=== PATIENT | female | born 1970 | race Two or more races ===

== ENCOUNTER 2024-05-09 16:42 | Emergency (ER) | payer OTHER ==
[~2024-05-09] VITALS: Ht 144.8 cm; Wt 52.3 kg
[2024-05-09 16:51] VITALS: TEMP 98.4
[2024-05-09 17:14] LABS: BASOPHILS % (AUTO) 0.7 % (0.0-2.0); EOSINOPHILS % (AUTO) 1.1 % (1.0-6.0); LYMPHOCYTES # (AUTO) 1.3 K/uL (1.0-4.8); LYMPHOCYTES % (AUTO) 28.4 % (22.0-44.0); MEAN CORPUSCULAR HEMOGLOBIN 31.3 pg (26.0-34.0); MEAN CORPUSCULAR HGB CONC 33.5 G/dL (31.0-37.0); MEAN CORPUSCULAR VOLUME 94 fL (80-100); MONOCYTES # (AUTO) 0.3 K/uL (0.1-1.0); MONOCYTES % (AUTO) 7.7 % (2.0-9.0); NEUTROPHILS # (AUTO) 2.8 K/uL (1.8-7.7); NEUTROPHILS % (AUTO) 62.1 % (40.0-70.0); PLATELET COUNT (AUTO) 271 K/uL (150-450); RED BLOOD CELL COUNT(AUTO) 4.16 MIL/uL (4.00-5.20); RED CELL DISTRIBUTION WIDTH 13.2 % (11.5-14.5); WHITE BLOOD COUNT (AUTO) 4.5 K/uL (4.5-11.0)
[2024-05-09 17:29] LABS: TROPONIN I-HIGH SENSITIVITY Less Than 4 ng/L (<51)
[2024-05-09 17:38] LABS: B-TYPE NATRIURETIC PEPTIDE 12 pg/mL (0-100)
[2024-05-09 17:43] LABS: ALANINE AMINOTRANSFERASE 28 U/L (12-78); ALBUMIN 3.5 g/dL (3.4-5.0); ALKALINE PHOSPHATASE 95 U/L (46-116); ASPARTATE AMINOTRANSFERASE 24 U/L (15-37); BILIRUBIN,TOTAL 0.4 mg/dL (0.1-1.0); CALCIUM, TOTAL 8.8 mg/dL (8.8-10.5); CARBON DIOXIDE 29 mmol/L (22-29); CREATINE KINASE, TOTAL ONLY 79 U/L (26-192); CREATININE 0.51 mg/dL (0.60-1.30); GLOMERULAR FILTR. RATE CALC > 60 mL/min (>60); GLUCOSE,RANDOM 92 mg/dL (70-110); LIPASE 30 U/L (16-77); TOTAL PROTEIN, SERUM 7.3 g/dL (6.4-8.2); UREA NITROGEN, BLOOD 12 mg/dL (7-18)
[2024-05-09 17:51] LABS: ANION GAP 7 mmol/L (8-16); CHLORIDE 103 mmol/L (98-107); POTASSIUM 3.9 mmol/L (3.5-5.1); SODIUM SERUM 139 mmol/L (136-145)
[2024-05-09] MEDS: ACETAMINOPHEN 325 MG TABLET PO ONE (18:13)
[2024-05-09 19:15] VITALS: BP 110/64; PULSE 62; RESP 18
== END 2024-05-09 19:15 | disposition home or self-care (01) ==
LOC: EMS 16:45
DX: R07.9 Chest pain, unspecified (principal)
CPT/HCPCS: 71045; 80053; 82550; 83690; 83880; 84484; 84703; 85025; 93005; 99285; 36415-L1; 36415-TC